=== PATIENT | female | born 1965 | race African-American/Black ===

== ENCOUNTER 2019-08-25 05:45 | Emergency (ER) | payer OTHER ==
[~2019-08-25] VITALS: Ht 170.2 cm; Wt 91.6 kg
[2019-08-25 05:54] VITALS: BP 153/89
--- NOTE | 2019-08-25 05:55 | NUR ---
PT AMBULATED TO BED 2 WITH STEADY GAIT.
--- NOTE | 2019-08-25 06:00 | NUR ---
PT 53 Y/O FEMALE BIB SELF FOR C/O COUGH X 1 WEEK. AFEBRILE 100.7. GENERLALIZED WEAKNESS. PT HAS C/O NAUSEA AND DIARRHEA X 1 DAY. PT ADMITS TO TAKING TYLENOL @ 1900 BEFORE GOING TO BED FOR FEVER WITH INEFFECTIVE RESULTS. PT NOTED WITH NON-PRODUCTIVE COUGH. LUNG SOUNDS CLEAR A/P BILAT. PT RESPIRATIONS ARE EVEN AND UNLABORED. BS ACTIVE X 4. PT SOMACH IS ROUND, SOFT, AND NON-TENDER. COOLING MEASURES IN PLACE. PT DENIES PAIN AT THIS TIME. BED LOCKED AND IN LOWEST POSTION. MEDHX: MULTIPLE SCLEROSIS ALLERGIES: NKA
[2019-08-25] MEDS ORDERED: ACETAMINOPHEN EXTRA STRENGTH 500 MG TAB PO ONE (06:25)
[2019-08-25 06:40] VITALS: BP 153/89
--- NOTE | 2019-08-25 06:40 | NUR ---
Patient discharged with v/s stable. Written and verbal after care instructions given and explained. Patient alert, oriented and verbalized understanding of instructions. Ambulatory with steady gait. All questions addressed prior to discharge. ID band removed. Patient advised to follow up with PMD. Rx of MOTRIN, PROMETHAZINE, ALBUTEROL, TAMIFLU. given. Patient educated on indication of medication including possible reaction and side effects. Opportunity to ask questions provided and answered.
== END 2019-08-25 06:40 | disposition home or self-care (01) ==
LOC: MED 05:45
DX: J11.1 Influenza due to unidentified influenza virus with other respiratory manifestations (principal); R03.0 Elevated blood-pressure reading, without diagnosis of hypertension
CPT/HCPCS: 99283